=== PATIENT | female | born 1970 | race Two or more races ===

== ENCOUNTER → 2021-09-04 | Outpatient (CLI) | payer OTHER | END | disposition home or self-care (01) | LOC: LAB 13:27 | PROVIDERS: ATTEND Specialist | DX: Z01.812 Encounter for preprocedural laboratory examination (principal); Z20.822 Contact with and (suspected) exposure to COVID-19 | CPT/HCPCS: C9803; U0003 ==

== ENCOUNTER 2021-12-21 09:22 | Outpatient (CLI) | payer OTHER | END 2021-12-21 23:59 | disposition home or self-care (01) | LOC: LAB 09:22 | PROVIDERS: ATTEND Specialist | DX: Z01.812 Encounter for preprocedural laboratory examination (principal); Z20.822 Contact with and (suspected) exposure to COVID-19 | CPT/HCPCS: U0003; C9803 ==

== ENCOUNTER 2021-12-25 05:02 | Day surgery (SDC) | payer OTHER ==
--- NOTE | 2021-12-25 05:15 | NUR ---
RN NOTES DAY SURGERY; RECEIVED PT IN RM 309-1 AMBULATORY AAOX4,ABLE TO MAKE NEEDS KNOWN,ROMAN WELL ON RM AIR.NO SOB/DISTRESS NOTED.PT HERE FOR DAY SURGERY CARPAL TUNNEL RELEASE.
[2021-12-25] MEDS ORDERED: BUPIVACAINE 0.5 % PF 150 MG/30 ML VIAL ONE (06:25)
[2021-12-25] MEDS ORDERED: FENTANYL PF 100MCG/2ML AMPUL ONE (06:44)
[2021-12-25] MEDS ORDERED: MIDAZOLAM HCL 2 MG/2ML VIAL ONE (06:45)
[2021-12-25] MEDS ORDERED: SUCCINYLCHOLINE CHLORIDE 20 MG/ML VIAL ONE (06:45)
[2021-12-25] MEDS ORDERED: PROPOFOL 20 ML IV ONE (06:45)
[2021-12-25 08:15] VITALS: BP 122/78
--- NOTE | 2021-12-25 08:15 | NUR ---
ms rn received patient from , s/p carpal tunnel surgery, awake,alert,oriented x4,not in any distress, respirations even and unlabored,no sob noted, denies pain at this time ,sx site w/ dressing, no evidence of active bleeding at this time. will monitor patient.
[2021-12-25 08:30] VITALS: BP 119/76
[2021-12-25 08:45] VITALS: BP 129/72
[2021-12-25 09:00] VITALS: BP 130/65
--- NOTE | 2021-12-25 09:44 | NUR ---
ms rn patient stable, v/s wnl, discharge instructions given and understood, went home in stable condition.
== END 2021-12-25 18:00 | disposition home or self-care (01) ==
LOC: DS 05:02 → MED 05:03 → UNDOADMIN 05:03 → UNDODISIN 09:50 → DS 18:00
PROVIDERS: ATTEND Specialist
DX: G56.01 Carpal tunnel syndrome, right upper limb (principal); Z20.822 Contact with and (suspected) exposure to COVID-19
CPT/HCPCS: 64721; 84703; 87081; J3490; J1100; J2704; J3010; J0330; J2405; A6402; G0378; J2250

== ENCOUNTER 2022-06-10 14:13 | Outpatient (CLI) | payer OTHER | END 2022-06-10 23:59 | disposition home or self-care (01) | LOC: LAB 14:13 | PROVIDERS: ATTEND Anesthesiology | DX: Z01.812 Encounter for preprocedural laboratory examination (principal); Z20.822 Contact with and (suspected) exposure to COVID-19 | CPT/HCPCS: U0003; C9803 ==

== ENCOUNTER 2022-06-18 05:21 | Day surgery (SDC) | payer OTHER ==
[~2022-06-18] VITALS: Ht 170.2 cm; Wt 105.2 kg
[2022-06-18 07:00] VITALS: BP 143/98
[2022-06-18] MEDS ORDERED: FENTANYL PF 100MCG/2ML AMPUL ONE (07:07)
[2022-06-18] MEDS ORDERED: ROCURONIUM BROMIDE 50 MG/5 ML ONE (07:08)
[2022-06-18] MEDS ORDERED: BUPIVACAINE 0.25% 75 MG/30 ML VIAL ONE (07:55)
[2022-06-18] MEDS ORDERED: methylPREDNISolone ACETATE 80 MG/ML VIAL ONE (07:55)
--- NOTE | 2022-06-18 08:40 | NUR ---
RN OPENING NOTE RECEIVED PT FROM SURGERY, A/OX4. VS TAKEN AND STABLE. LEFT KNEE SURGICAL INCISION COVERED WITH BANDAGE. PT IS ON RA BREATHING EVEN AND NON LABORED. NO S/S OF ACUTE DISTRESS, SOB NOTE AT THIS TIME. SAFETY PRECAUTIONS IN PLACE. BED IN LOWEST LOCKED POSITION, HOB ELEVATED, SIDE RAILS UP X2, CALL LIGHT AND TABLE WITHIN REACH. WILL CONTINUE TO MONITOR.
--- NOTE | 2022-06-18 10:45 | NUR ---
STORY EDITOR NOTE PATIENT DISCHARGE IN STABLE MEDICAL CONDITION. A/OX4. VS TAKEN, STABLE. NO S/S OF ACUTE DISTRESS NOTED. NO IV ACCESS, NAME ARM BAND REMOVED. LEFT KNEE SURGICAL INCISION COVERED WITH BANDAGE. HEALTH TEACHING AND DISCHARGE INSTRUCTION GIVEN TO THE PATIENT. VERBALIZED UNDERSTANDING. PATIENT LEFT VIA PRIVATE CAR WITH FAMILY MEMBER. ACCOMPANIED BY OUTSIDE PLANT CABLE ENGINEER TO LOBBY. CHARGE NURSE AWARE OF DISCHARGE.
== END 2022-06-18 19:00 | disposition home or self-care (01) ==
LOC: DS 05:21 → UNDOADMIN 05:58 → MED 05:58 → UNDODISIN 11:45 → DS 19:00
PROVIDERS: ATTEND Specialist
DX: S83.272A Complex tear of lateral meniscus, current injury, left knee, initial encounter (principal); Z20.822 Contact with and (suspected) exposure to COVID-19; M94.261 Chondromalacia, right knee; X58.XXXA Exposure to other specified factors, initial encounter; Y93.89 Activity, other specified; Y92.89 Other specified places as the place of occurrence of the external cause; Y99.8 Other external cause status
CPT/HCPCS: 29881; 84703; 87081; J0690; J1040; J2704; J3010; J3490; J7040; A6253; A4217; G0378